=== PATIENT | female | born 1945 | race Caucasian/White ===

== ENCOUNTER 2017-03-01 08:32 | Outpatient (CLI) | payer OTHER | END 2017-03-01 08:38 | disposition home or self-care (01) | LOC: NUCLEAR 08:32 | DX: I73.89 Other specified peripheral vascular diseases (principal); I87.2 Venous insufficiency (chronic) (peripheral) ==

== ENCOUNTER 2017-03-01 09:25 | Outpatient (CLI) | payer OTHER | END 2017-03-01 09:46 | disposition home or self-care (01) | LOC: RAD 09:25 | DX: Z96.652 Presence of left artificial knee joint (principal) ==

== ENCOUNTER 2018-03-24 15:10 | Outpatient (CLI) | payer OTHER | END 2018-03-24 15:26 | disposition home or self-care (01) | LOC: EKG 15:10 → LAB 15:10 → EKG 15:26 | DX: R05 Cough (principal); Z01.810 Encounter for preprocedural cardiovascular examination; R10.2 Pelvic and perineal pain ==

== ENCOUNTER 2018-03-26 13:30 | Outpatient (CLI) | payer OTHER | END 2018-03-26 14:28 | disposition home or self-care (01) | LOC: MRI 13:30 | DX: M51.17 Intervertebral disc disorders with radiculopathy, lumbosacral region (principal); M54.5 Low back pain; M62.81 Muscle weakness (generalized) | CPT/HCPCS: 72148 ==

== ENCOUNTER 2018-10-17 12:00 | Outpatient (CLI) | payer OTHER | END 2018-10-17 12:03 | disposition home or self-care (01) | LOC: TOM 12:00 | DX: K57.30 Diverticulosis of large intestine without perforation or abscess without bleeding (principal) ==

== ENCOUNTER 2019-03-30 12:48 | Outpatient (CLI) | payer OTHER | END 2019-03-30 12:51 | disposition home or self-care (01) | LOC: MRI 12:48 | DX: M51.17 Intervertebral disc disorders with radiculopathy, lumbosacral region (principal) | CPT/HCPCS: 72148 ==

== ENCOUNTER 2019-06-15 15:01 | Outpatient (CLI) | payer OTHER | END 2019-06-15 15:14 | disposition home or self-care (01) | LOC: MRI 15:01 | DX: M06.852 Other specified rheumatoid arthritis, left hip (principal) | CPT/HCPCS: 73721 ==

== ENCOUNTER 2021-02-06 11:58 | Outpatient (CLI) | payer OTHER | END 2021-02-06 12:09 | disposition home or self-care (01) | LOC: MRI 11:58 | PROVIDERS: ATTEND Neurological Surgery | DX: M48.02 Spinal stenosis, cervical region (principal) | CPT/HCPCS: 72141 ==

== ENCOUNTER 2022-02-09 07:14 | Outpatient (CLI) | payer OTHER | END 2022-02-09 07:27 | disposition home or self-care (01) | LOC: MRI 07:14 | PROVIDERS: ATTEND Psychiatry & Neurology Neurology | DX: R42 Dizziness and giddiness (principal) ==